=== PATIENT | male | born 1965 | race Caucasian/White ===

== ENCOUNTER 2020-10-05 07:14 | Day surgery (SDC) | payer OTHER ==
[~2020-10-05] VITALS: Ht 188 cm; Wt 108.9 kg
[~2020-10-05 07:14] MED LIST: BUPR150ER PO; TRAZ50 PO
--- NOTE | 2020-10-05 07:56 | NUR ---
PT HERE FOR COLONOSCOPY UPON ARRIVAL PT VERY QUIET AND WITHDRAWN HRT RATE 125 BP 175/91 PT STATES NO HTN OR HEART PROBLEMS WILL NOTIFY DR IRWIN
--- NOTE | 2020-10-05 08:20 | NUR ---
DR IRWIN GIVEN VS AND 3 LEAD TO REVIEW BEFORE PROCEDURE NO FURTHER ORDERS FROM DR IRWIN
--- NOTE | 2020-10-05 08:58 | NUR ---
10/05/20 0858 Steph Canela History, Chart, Medications and Allergies reviewed before start of procedure.PATIENT DETERMINED TO BE ASA APPROPRIATE FOR PROPOFOL SEDATION PRIOR TO START OF PROCEDURE BY .MONITOR INTACT WITH CONTINUOUS PULSE OXIMETRY AND INTERMITTENT BP.3-LEAD EKG REVIEWED WITH PHYSICIAN PRIOR TO START OF PROCEDURE.O2 VIA N/C INTACT THROUGHOUT SEDATION/PROCEDURE. DISCUSSED TREMORS AND TACHYCARDIA WITH DR. DUKES TO START OF PROCEDURE.
--- NOTE | 2020-10-05 09:32 | NUR ---
Ambulatory in Day Surgery Discharge instructions reviewed with patient. Patient verbalizes understanding. Copy given to patient to take home. Patient States Post-Procedure ride home has been arranged. Discharged via wheelchair to private car for ride home. PT HAVING TREMORS BILATERALLY STATES HAPPENS ALOT BUT DENIES SEEKING MEDICAL ATTENTION PT URGED TO MAKE AN APPT. WITH PCP
== END 2020-10-05 23:05 | disposition home or self-care (01) ==
LOC: ORSCMMR 07:14 → ORD 10:30 → ORSCMMR 23:05
PROVIDERS: Internal Medicine Gastroenterology
PROC: 0DBH8ZX Excision of Cecum, Via Natural or Artificial Opening Endoscopic, Diagnostic (ICD-10-PCS; principal; 2020-10-05 08:30)
PROC: 0DBK8ZX Excision of Ascending Colon, Via Natural or Artificial Opening Endoscopic, Diagnostic (ICD-10-PCS; principal; 2020-10-05 08:30)
PROC: 0DBN8ZX Excision of Sigmoid Colon, Via Natural or Artificial Opening Endoscopic, Diagnostic (ICD-10-PCS; principal; 2020-10-05 08:30)
DX: K62.5 Hemorrhage of anus and rectum (principal); D12.0 Benign neoplasm of cecum; F32.9 Major depressive disorder, single episode, unspecified; Z79.899 Other long term (current) drug therapy
CPT/HCPCS: 88305; J2250; J2704; J7120